=== PATIENT | male | born 1985 | race Caucasian/White ===

== ENCOUNTER 2017-11-29 13:18 | Inpatient (IN) | payer OTHER, SELFPAY ==
[2017-11-29] VITALS (10 sets, daily range): BP systolic 101–133; BP diastolic 59–95; PULSE 62–86; RESP 14–18; TEMP 36.4–37.1; O2SAT 96–99; BMI 25.7; BMI 26.9
--- NOTE | 2017-11-29 13:24 | CT_ITS ---
STUDY: CT BRAIN WITHOUT CONTRAST REASON FOR EXAM: Male, 32 years old. Double vision. Dizziness and nausea. Acute onset. RADIATION DOSAGE (If Supplied By Facility): CTDIvol = ( 60.81 ) mGy, DLP = ( 975.86 ) mGycm TECHNIQUE: Transaxial CT imaging of the brain was performed without administration of intravenous contrast material. Individualized dose optimization techniques were used for this CT. COMPARISON: None. FINDINGS: Normal soft tissue structures. Normal calvarium. Normal size ventricles and extra-axial spaces for the patient's age. Normal white matter tracts of the cerebral hemispheres. Normal basal ganglia and thalami. Normal brainstem. Normal cerebellum. There is no intracranial hemorrhage. There are no findings of an acute ischemic infarction. Normal visualized paranasal sinuses. CT/Brain/Head without Contrast IMPRESSION: Normal unenhanced CT scan of the brain. Electronically Signed: Denys Herrera MD at 14:12 EST Tel [phone], Service support ,
[2017-11-29] MEDS: Ondansetron ODT 4 MG Tablet PO (13:26)
[2017-11-29 16:03] LABS: Anion Gap 7 (5-15); BUN 17 mg/dL (7-18); BUN/Creat Ratio 20.6 RATIO (10-20); Calcium,Total 9.5 mg/dL (8.5-10.1); Chloride 104 mmol/L (98-107); Creatinine, Serum 0.83 mg/dL (0.70-1.30); EST Glomerular Filtration Rate 116 mL/min (>60); Est Glom Filt Rate - Afr Amer 140 mL/min (>60); Estimated Creatinine Clearance 108.97 ml/min; Glucose 99 mg/dL (70-110); Potassium 4.4 mmol/L (3.5-5.1); Sodium Level 138 mmol/L (136-145)
[2017-11-29 16:04] LABS: Absolute Lymphocyte Count 1.37 X10^3/ul (0.83-4.51); Absolute Neutrophil Count 9.9 X10^3/uL (2.0-7.7); Basophil# 0.01 X10^3/uL; Basophil% 0.1 % (0-1); Eosinophil# 0.08 X10^3/uL; Eosinophils% 0.7 % (0-5); Hematocrit 51.1 % (40-54); Hemoglobin 17.2 g/dl (13.0-16.5); Lymphocyte # 1.37 X10^3/ul (4.0); Lymphocyte % 11.1 % (19-41); Mean Corp Hgb Conc 33.7 g/gl (32-36); Mean Corpuscular Hgb 31.6 pg (27.0-32.0); Mean Corpuscular Volume 93.9 fL (80-94); Mean Platelet Vol. 10.1 fl (6.2-12.0); Monocyte# 0.88 X10^3/uL; Monocyte% 7.2 % (0-10); Neutrophil # 9.94 X10^3/uL (2.7-7.7); Neutrophil % 80.7 % (47-70); Platelet Count 266 K/mm3 (150-450); RBC Distribution Width CV 12.7 % (11.6-14.6); RBC Distribution Width SD 43.6 fl (35.1-43.9); Red Blood Count 5.44 M/mm3 (4.6-6.2); White Blood Count 12.3 K/mm3 (4.4-11.0)
[2017-11-29 16:08] LABS: POSITIVE COUNT NO; POSITIVE DIFFERENTIAL NO; POSITIVE MORPHOLOGY NO
[2017-11-29 16:12] LABS: Amphetamine Urine VISTA NEGATIVE (<1000 ng/mL); Barbiturate Urine VISTA NEGATIVE (< 200 ng/mL); Benzodiazepine Urine VISTA NEGATIVE (< 200 ng/mL); Cocaine Urine VISTA NEGATIVE (< 300 ng/mL); Ecstacy Urine VISTA NEGATIVE (< 500 ng/mL); Methadone Urine VISTA NEGATIVE (< 300 ng/mL); PCP Urine VISTA NEGATIVE (< 25 ng/mL); THC Urine VISTA NEGATIVE (< 50 ng/mL); Vista UDS pH Range 6
--- NOTE | 2017-11-29 16:34 | MRI_ITS ---
ADDENDUM REPORT: MR Brain WO/W Contrast INDICATION: LEFT MEDIAL RICTUS PALSYdizzy,double vision, eyes not moving together COMPARISON: None TECHNIQUE: Multiplanar multisequence MRI examination of the brain and with IV contrast. Dedicated T1 and T2-weighted sequences of the orbits without and with IV contrast. A total of 7 mL of gadoavist was given. FINDINGS: There is evidence of a punctate focus of restricted diffusion. The left lateral aspect of the rhomboid fossae, floor of the superior aspect of the fourth ventricle, just caudal to the left inferior colliculus. This is compatible with a punctate focus of infarction in the midbrain. No additional areas of infarction are seen. The ventricular system and cortical sulci are normal. Small simple cyst is seen adjacent to the frontal horn of the right lateral ventricle, congenital variation. Midline structures and craniocervical junction are otherwise unremarkable. There is no evidence of signal abnormality to suggest underlying chronic ischemic microvascular white matter changes. There is no evidence of parenchymal hemorrhage, mass effect, midline shift, or abnormal extra-axial collection. Orbital structures are normal and symmetric. Optic nerve sheath complexes are normal. Globes are normal and symmetric. Extraocular muscles are normal and symmetric. After contrast administration, there is no abnormal enhancement identified. Flow voids of the [place] vascularity are present. The paranasal sinuses and mastoid air cells are clear. IMPRESSION: Punctate focus of restricted diffusion/acute infarction in the rhomboid fossa, left lateral aspect of the floor of the fourth ventricle (midbrain). No evidence of any prior infarcts or underlying chronic ischemic microvascular white matter disease. Unremarkable appearance of the orbital contents. at 2022 Reported and signed by: Shu Peraza MD at 2041 Reported and signed by: Shu Peraza MD PREVIOUS REPORT: MR Brain WO/W Contrast INDICATION: LEFT MEDIAL RICTUS PALSYdizzy,double vision, eyes not moving together COMPARISON: None TECHNIQUE: Multiplanar multisequence MRI examination of the brain and with IV contrast. Dedicated T1 and T2-weighted sequences of the orbits without and with IV contrast. A total of 7 mL of gadoavist was given. FINDINGS: There is evidence of a punctate focus of restricted diffusion. The left lateral aspect of the rhomboid fossae, floor of the superior aspect of the fourth ventricle, just caudal to the left inferior colliculus. This is compatible with a punctate focus of infarction in the midbrain. No additional areas of infarction are seen. The ventricular system and cortical sulci are normal. Small simple cyst is seen adjacent to the frontal horn of the right lateral ventricle, congenital variation. Midline structures and craniocervical junction are otherwise unremarkable. There is no evidence of signal abnormality to suggest underlying chronic ischemic microvascular white matter changes. There is no evidence of parenchymal hemorrhage, mass effect, midline shift, or abnormal extra-axial collection. Orbital structures are normal and symmetric. Optic nerve sheath complexes are normal. Globes are normal and symmetric. Extraocular muscles are normal and symmetric. After contrast administration, there is no abnormal enhancement identified. Flow voids of the [place] vascularity are present. The paranasal sinuses and mastoid air cells are clear. IMPRESSION: Punctate focus of restricted diffusion/acute infarction in the rhomboid fossa, left lateral aspect of the floor of the fourth ventricle (midbrain). No evidence of any prior infarcts or underlying chronic ischemic microvascular white matter disease. Unremarkable appearance of the orbital contents. at 2023 Reported and signed by: Shu Peraza MD Electronically Signed: Shu Peraza MD at 19:40 EST Tel , Service support , MR Face Neck Orbit WO/W Contrast INDICATION: LEFT MEDIAL RICTUS PALSYdizzy,double vision, eyes not moving together COMPARISON: None TECHNIQUE: Multiplanar multisequence MRI examination of the brain and with IV contrast. Dedicated T1 and T2-weighted sequences of the orbits without and with IV contrast. A total of 7 mL of gadoavist was given. FINDINGS: There is evidence of a punctate focus of restricted diffusion. The left lateral aspect of the rhomboid fossae, floor of the superior aspect of the fourth ventricle, just caudal to the left inferior colliculus. This is compatible with a punctate focus of infarction in the midbrain. No additional areas of infarction are seen. The ventricular system and cortical sulci are normal. Small simple cyst is seen adjacent to the frontal horn of the right lateral ventricle, congenital variation. Midline structures and craniocervical junction are otherwise unremarkable. There is no evidence of signal abnormality to suggest underlying chronic ischemic microvascular white matter changes. There is no evidence of parenchymal hemorrhage, mass effect, midline shift, or abnormal extra-axial collection. Orbital structures are normal and symmetric. Optic nerve sheath complexes are normal. Globes are normal and symmetric. Extraocular muscles are normal and symmetric. After contrast administration, there is no abnormal enhancement identified. Flow voids of the [place] vascularity are present. The paranasal sinuses and mastoid air cells are clear. MRI/Brain W/WO Contrast IMPRESSION: Punctate focus of restricted diffusion/acute infarction in the rhomboid fossa, left lateral aspect of the floor of the fourth ventricle (midbrain). No evidence of any prior infarcts or underlying chronic ischemic microvascular white matter disease. Unremarkable appearance of the orbital contents. at 2023 Reported and signed by: Shu Peraza MD Electronically Signed: Shu Peraza MD at 19:21 EST Tel , Service support ,
--- NOTE | 2017-11-29 16:40 | ED.VISSUMM ---
- ER Visit Summary Date of Service: 11/29/17 Chief Complaint: Double vision History of Present Illness: The patient is a 32 M who states that he was awake around 930 and was seen normally. He laid down for a nap and he states that he was awoken from his nap by something. It may have been a headache or may be a bad dream. He states that when he looked at the television there was 2 of them. This double vision has persisted all day. He states he feels off balance while walking. He wears corrective lenses. When he covers one eye is double vision goes away. He does note that when he covers his right eye he cannot look medially with the left eye. Patient has a history of cocaine use but denies any recent use. Physical Examination: Afebrile vital signs are stable visual acuity 20/20 in both eyes with corrective lenses 20/20 right eye 20/25 left eye Gen: Well-nourished well-developed Head: Normocephalic atraumatic Eyes: Perrl pupils react consensually. Visual acuity noted and normal. There is a medial rectus palsy. ENT: TMs clear no rhinorrhea moist mucous membranes Neck: Supple no lymphadenopathy no JVD nontender CVS: Regular rate rhythm no murmurs normal S1-S2 Respiratory: No distress clear to auscultation bilaterally chest nontender Abdomen: Soft nontender nondistended normal bowel sounds no masses Back: Nontender Extremity: Nontender no edema Skin: Normal color no rash Neuro: alert orientated ?3 CN II-XII intact normal strength sensation reflexes gait cerebellar Psych: Normal affect normal mood Test Results: CT obtained through nursing triage was negative. Basic blood work and urine drugs abuse is negative. MRI was obtained. This was positive for an area of acute infarction in the midbrain Emergency Department Course and Treatment: Patient passed swallow study. Received aspirin. I originally spoke with Dr. Garcia for ophthalmology and later spoke with Dr. Horowitz and Dr. Caldwell. Our plan is admission. Impression: 1. Acute stroke 2. Intranuclear ophthalmoplegia This note was generated with [employer] software. It may contain incorrect words, spelling, and punctuation that were not noted in review of the chart prior to signing ED Disposition - Plan for ED Patient: Chief Complaint: Vision Prob
--- NOTE | 2017-11-29 20:46 | EKG12_ITS ---
Test Reason : Blood Pressure : / mmHG Vent. Rate : 057 BPM Atrial Rate : 057 BPM P-R Int : 156 ms QRS Dur : 086 ms QT Int : 386 ms P-R-T Axes : 037 011 022 degrees QTc Int : 375 ms Sinus bradycardia Otherwise normal ECG Confirmed by ARIES HUSSEIN ([id number]), medical editor SANTHOSH ROSAS ([id number]) on 12/04/2017 10:07:20 AM Referred By: STEPHEN Confirmed By:ARIES HUSSEIN
[2017-11-29] MEDS: Aspirin 325 MG Tablet PO (20:58)
[2017-11-29] MEDS: Acetaminophen 500 MG Tablet 1000 MG PO (20:58)
--- NOTE | 2017-11-29 21:24 | ED.RN ---
DR. JONES RETURNED PAGE
--- NOTE | 2017-11-29 21:50 | HP.PCM_ITS ---
Problem List (1) Tobacco use Status: Chronic (2) Polysubstance abuse Status: Chronic (3) Overweight (BMI 25.0-29.9) Status: Chronic (4) Acute CVA (cerebrovascular accident) Status: Acute History of Present Illness Date of Admission: 11/29/17 Chief Complaint: Double vision. The patient is a 32 y/o M w/ PMHx: Tobacco use, Polysubstance abuse who presents to the [facility] ED on 11/29/17 w/ history of awakening this AM at ~ 9:30 am without any issue, laying down again at ~ 10:00 am, awakening suddenly for unclear reason at ~ 10:45 am and when he looked at the TV in front of him there were two images present. He laid back down and thought it may go away but eventually upon fully awaking it would not. He noted the diplopia continued throughout the evening with associated nausea. He noted associated difficulty walking secondary to the double vision. He noted when he closes 1 eye, either, he is able to see normally. In the ED evaluation w/ improvement of vision to baseline w/ 1 eye closed, noted left eye unable to cross midline w/ nystagmus present, visual acuity with 1 eye closure 20/20 w/ eye glasses. ED discussed patient w/ [facility], Dr. Garcia who will follow outpatient upon discharge. In the ED work-up included T 98.7, HR 70, BP 125/81, RR 16, 99% on RA , CBC w/ WBC 12.3, Hgb 17.2, Plts 266 with L shift, coags pending, BMP unremarkable, UDS unremarkable, CT brain unremarkable, MRI Brain w/ punctate focus of restricted diffusion/acute infarction in the rhomboid fossa, left lateral aspect of the floor of the fourth ventricle with no evidence of any prior infarcts or underlying chronic ischemic microvascular white matter disease , unremarkable appearance of the orbital contents. In the ED patient administered Tylenol, aspirin 325 mg p.o. ?1, Silvia. Neurology, Dr. Horowitz consulted per ED and case reviewed, agreed with ASA continuation, will see in AM he noted. Discussed case with ED and requested prior to admission given age and atypical presentation, hypercoaguable panel be obtained prior to admission. Past Medical History Past Medical History (Chronic Problems): Chronic Problems Tobacco use (Chronic) Polysubstance abuse (Chronic) Overweight (BMI 25.0-29.9) (Chronic) Allergies No Known Allergies Allergy (Verified 11/29/17 13:21) Home Medications: Ambulatory Orders Medication Instructions Recorded NK [NK] 11/29/17 Surgical History: - - RLE surgery w/ hardware. Psychiatric History: No pertinent psych hx Lives: Alone Smoking Status: Current some day smoker Tobacco Use: Cigarettes Alcohol: Occasional - Notes 1-2 beers per day. Drugs: - - Clean x 1 year, prior noted cocaine most recently. - *Family History Maternal History Items: Heart Disease, Hypertension Paternal History Items: - - ? History of possible DVT, not confirmed. Review of Systems Constitutional: Reports: Fatigue. Denies: Chills, Fever, Weight Change Eyes: Reports: Double vision HEENT: Reports: Head Aches. Denies: Sinus Congestion, Sinus Drainage Cardiovascular: Denies: Chest Pain, Palpitations Respiratory: Denies: Cough, Shortness of breath at rest, Sputum production Gastrointestinal: Reports: Nausea. Denies: Abdominal Pain, Vomiting Genitourinary: Denies: Dysuria Musculoskeletal: Denies: Joint Pain, Joint Tenderness Skin: Denies: Rash, Wounds Neurological: Denies: Numbness, Tingling, Focal weakness Psychiatric: Denies: Anxiety, Depression, Homicidal Ideations, Suicidal Ideations Hematologic/ Lymphatic: Denies: Easy Bruising, Easy Bleeding VTE Information - Inpt Only VTE Present on Admission: No VTE Mechan Device Prophylaxis: SCD's VTE Pharm Prophylaxis ordered?: Yes Patient Problems: Active and Suspected Problems Acute CVA (cerebrovascular accident) (Acute) Subjective: Seated upright in the ED bed, NAD, notes no further headache and nausea improved after anti-emetic. Objective: Physical Examination: General: awake, alert, oriented x 3 and cooperative, seated upright in the ED bed in no apparent distress. Skin: normal color, turgor, no icterus, cyanosis. HEENT: AT/NC, EOM not intact, unable to pass midline BL with lateral vision w/ nystagmus present BL with lateral attempts, PERRLA, mildly dry MM, no carotid bruits or JVD noted. Lungs: CTA bilaterally, moderate effort, mild decrease BL bases, no rales, ronchi or wheezing. Heart: regular rate and rhythm; no gallop, rub audible. Abdomen: soft, NTTP, ND, normal BS, no HSM. Extremities: no cyanosis, clubbing, or edema. Neurological: patient awake, alert, oriented x 3; cognitive function intact; pupils equally reactive to light and accomodation; EOM not intact, unable to pass midline BL with lateral vision w/ nystagmus present BL with lateral attempts; cranial nerves aside eye deficit noted intact; moving all 4 extremities, no focal deficits, negative babinski BL, strength preserved. Psychiatric: affect appears normal, no acute evidence of depressive or anxiety feelings. - Physical Exam Vital Signs Temp Pulse Resp BP Pulse Ox 98.7 F 62 16 109/95 H 99 11/29/17 13:19 11/29/17 21:02 11/29/17 21:02 11/29/17 21:02 11/29/17 21:02 Oxygen Delivery Method Room Air Weight: 150 lb Body Mass Index (BMI) 25.7 Laboratory Tests Past 24 Hrs 11/29/17 11/29/17 11/29/17 14:20 14:20 15:50 WBC 12.3 H RBC 5.44 Hgb 17.2 H Hct 51.1 MCV 93.9 MCH 31.6 MCHC 33.7 RDW 12.7 RDW Differential 43.6 Plt Count 266 MPV 10.1 Immature Gran % (Auto) 0.200 Neut % (Auto) 80.7 H Lymph % (Auto) 11.1 L [place] % (Auto) 7.2 Eos % (Auto) 0.7 Baso % (Auto) 0.1 Absolute Neuts (auto) 9.9 H Absolute Lymphs (auto) 1.37 Total Counted Not Reportable PT INR APTT Sodium 138 Potassium 4.4 Chloride 104 Carbon Dioxide 27.0 Anion Gap 7 BUN 17 Creatinine 0.83 Estim Creat Clear Calc 108.97 Est GFR (MDRD) Af Amer 140 Est GFR (MDRD) Non-Af 116 BUN/Creatinine Ratio 20.6 H Glucose 99 Calcium 9.5 Urine Opiates Screen NEGATIVE Urine Methadone Screen NEGATIVE Ur Barbiturates Screen NEGATIVE Ur Phencyclidine Scrn NEGATIVE Ur Amphetamines Screen NEGATIVE U Methamphetamin-MDMA NEGATIVE U Benzodiazepines Scrn NEGATIVE Urine Cocaine Screen NEGATIVE U Cannabinoids Screen NEGATIVE Ur Drug Screen Comment 11/29/17 21:10 WBC RBC Hgb Hct MCV MCH MCHC RDW RDW Differential Plt Count MPV Immature Gran % (Auto) Neut % (Auto) Lymph % (Auto) [place] % (Auto) Eos % (Auto) Baso % (Auto) Absolute Neuts (auto) Absolute Lymphs (auto) Total Counted PT Pending INR Pending APTT Pending Sodium Potassium Chloride Carbon Dioxide Anion Gap BUN Creatinine Estim Creat Clear Calc Est GFR (MDRD) Af Amer Est GFR (MDRD) Non-Af BUN/Creatinine Ratio Glucose Calcium Urine Opiates Screen Urine Methadone Screen Ur Barbiturates Screen Ur Phencyclidine Scrn Ur Amphetamines Screen U Methamphetamin-MDMA U Benzodiazepines Scrn Urine Cocaine Screen U Cannabinoids Screen Ur Drug Screen Comment Assessment/Plan Active and Suspected Problems Acute CVA (cerebrovascular accident) (Acute) The patient is a 32 y/o M w/ PMHx: Tobacco use, Polysubstance abuse who presents to the [facility] ED on 11/29/17 w/ history of awakening this AM at ~ 9:30 am without any issue, laying down again at ~ 10:00 am, awakening suddenly for unclear reason at ~ 10:45 am and when he looked at the TV in front of him there were two images present. (1) Diplopia secondary to acute infarction in the rhomboid fossa, left lateral aspect of the floor of the fourth ventricle: In the ED work-up included T 98.7, HR 70, BP 125/81, RR 16, 99% on RA, CBC w/ WBC 12.3, Hgb 17.2, Plts 266 with L shift, coags pending, BMP unremarkable, UDS unremarkable, CT brain unremarkable , MRI Brain w/ punctate focus of restricted diffusion/acute infarction in the rhomboid fossa, left lateral aspect of the floor of the fourth ventricle with no evidence of any prior infarcts or underlying chronic ischemic microvascular white matter disease, unremarkable appearance of the orbital contents. Will admit to PCU, will obtain CTA Head and Neck given not obtained in the ED, already obtained MRI Brain w/ acute CVA as noted, obtain ECHO, PT/OT/Speech/ Nutrition evaluation per protocol. Will continue ED initiated consult with Neurology. Will allow permissive HTN although BP normal in the ED, maintain on asa, add statin w/ AM FLP, fall precautions. Mag, TSH pending. Fall precautions. Hypercoag panel requested per ED prior to admission, pending these results may be appropriate for anticoagulation. Plan follow-up at [facility] w/ Dr. Garcia upon discharge. (2) Tobacco Abuse: Encouraged cessation, inpatient consultation per RT, NR if desired. (3) Polysubstance abuse: Notes clean x> 1 year, last was cocaine, last usage 1 year prior, UDS negative, denies any fire sprinkler designer drugs. (4) DVT Prophylaxis: SCDs, lovenox. Code Visit Inpatient E&M: 50935 Init Hosp L3
[2017-11-29 21:51] LABS: Partial Thromboplast Time 29.5 Seconds (24.1-36.2)
[2017-11-29] MEDS: Ondansetron 4 MG/2 ML Vial IV (22:46)
--- NOTE | 2017-11-29 23:06 | ECHOD_ITS ---
Reason For Study: TIA/CVA Procedure This was a 2D Doppler, Color Flow transthoracic echocardiogram. Exam performed portable in patient room. Left Ventricle Normal size and thickness. The estimated ejection fraction is 65 %. Normal diastology for age. No regional wall motion abnormalities noted. Right Ventricle Normal size and thickness. A moderator band is seen in the right ventricle. Normal systolic function. Atria Normal left atrium. Normal right atrium. Normal atrial septum. Bubble contrast study negative for right to left interatrial shunt. Mitral Valve The mitral valve is structurally normal. No prolapse or stenosis seen. Tricuspid Valve Normal tricuspid valve. Unable to estimate RV systolic pressure/pulmonary artery pressure due to technically difficult study. Aortic Valve Trisinus/trileaflet aortic valve. Normal aortic valve. Pulmonic Valve Normal pulmonic valve. Great Vessels Normal aortic root. Normal arch. Normal inferior vena cava. Inferior vena cava collapse with sniff. Pericardium/Pleural No pericardial effusion. Medication Performed a rapid injection of agitated mix of 9 cc saline and 1cc air to assess for atrial septal defect. MMode/2D Measurements & Calculations LVIDd: 4.3 cm IVSd: 0.87 cm Ao root diam: 2.9 cm LVIDs: 2.6 cm LVPWd: 0.83 cm LA dimension: 3.1 cm RVDd: 3.0 cm FS: 38.3 % LAV(MOD-bp): 27.3 ml LA A4 area: 13.0 cm2 RA A4 area: 14.3 cm2 LAV(MOD-bp) Indexed: 15.7 ml/m2 LAV(MOD-sp2): 25.3 ml LAV(MOD-sp4): 23.2 ml Doppler Measurements & Calculations MV E max man: 93.6 cm/sec Lat Peak E' Man: 15.0 cm/sec Med Peak E' Man: 13.9 cm/sec MV A max man: 61.1 cm/sec E/E' lat: 6.3 E/E' med: 6.7 MV E/A: 1.5 Ao V2 max: 133.6 cm/sec LV V1 max: 121.7 cm/sec PA V2 max: 104.0 cm/sec Ao max P.1 mmHg LV V1 max P.9 mmHg Interpretation Summary The estimated ejection fraction is 65 %. Normal diastology for age. Unable to estimate RV systolic pressure/pulmonary artery pressure due to technically difficult study. Bubble contrast study negative for right to left interatrial shunt. There is no comparison study available. Ordering Physician: Latanya Caldwell Referring Physician: Sheron PCP Performed By: Yancy Rivas RDCS
--- NOTE | 2017-11-29 23:06 | CT_ITS ---
CTA Head and Neck WO/W Contrast INDICATION: DOUBLE VISION,NAUSEA AND UNABLE TO STAND,ELEVATED WBC,PT HAD C- BRAIN AND MRI ALSOHX:VERTIGO COMPARISON: None TECHNIQUE: High-resolution axial CT imaging of the head and neck during intravenous contrast administration, CTA protocol. Coronal, sagittal, MIP reformatted images are obtained. Radiation dose of dilatation technique and NASCET criteria are applied. 100 mL of Isovue-370 were given intravenously. FINDINGS: CTA neck: Aortic arch is unremarkable, there is normal origin of the great vessels from the aortic arch (bovine anatomy incidentally noted). There is unremarkable appearance of the common carotid arteries. The bifurcations are normal. There is no evidence of arteriosclerotic disease. The internal carotid arteries are normal and symmetric. Posterior circulation demonstrates a dominant left vertebral artery and a small caliber right vertebral artery. There is normal confluence to the basilar artery. CTA head: There is symmetric appearance of the intracranial portions of the internal carotid arteries with symmetric supply to the anterior and middle cerebral arteries and their branch vessels. Posterior circulation demonstrates normal appearance of the basilar artery, basilar artery gives rise to both posterior cerebral arteries. The dural venous sinuses are patent. CT/CTA Head W/WO Contrast IMPRESSION: Negative CT angiogram of the head and neck. at 5376 Reported and signed by: Shu Peraza MD Electronically Signed: Shu Peraza MD at 22:57 EST Tel , Service support ,
--- NOTE | 2017-11-29 23:06 | CT_ITS ---
CTA Head and Neck WO/W Contrast INDICATION: DOUBLE VISION,NAUSEA AND UNABLE TO STAND,ELEVATED WBC,PT HAD C- BRAIN AND MRI ALSOHX:VERTIGO COMPARISON: None TECHNIQUE: High-resolution axial CT imaging of the head and neck during intravenous contrast administration, CTA protocol. Coronal, sagittal, MIP reformatted images are obtained. Radiation dose of dilatation technique and NASCET criteria are applied. 100 mL of Isovue-370 were given intravenously. FINDINGS: CTA neck: Aortic arch is unremarkable, there is normal origin of the great vessels from the aortic arch (bovine anatomy incidentally noted). There is unremarkable appearance of the common carotid arteries. The bifurcations are normal. There is no evidence of arteriosclerotic disease. The internal carotid arteries are normal and symmetric. Posterior circulation demonstrates a dominant left vertebral artery and a small caliber right vertebral artery. There is normal confluence to the basilar artery. CTA head: There is symmetric appearance of the intracranial portions of the internal carotid arteries with symmetric supply to the anterior and middle cerebral arteries and their branch vessels. Posterior circulation demonstrates normal appearance of the basilar artery, basilar artery gives rise to both posterior cerebral arteries. The dural venous sinuses are patent. CT/CTA Neck W/WO Contrast IMPRESSION: Negative CT angiogram of the head and neck. at 5876 Reported and signed by: Shu Peraza MD Electronically Signed: Shu Peraza MD at 22:56 EST Tel , Service support ,
[2017-11-29 23:35] LABS: Magnesium 1.9 mg/dL (1.6-2.6); Thyroid Stim Hormone (TSH) 1.09 uIU/mL (0.358-3.74)
[2017-11-30] VITALS (13 sets, daily range): BP systolic 116–138; BP diastolic 67–83; PULSE 53–83; RESP 16–18; TEMP 36.6–37.2; O2SAT 96–99; BMI 26.9
[2017-11-30] MEDS: 0.9% Normal Saline 1,000 ML 100 ML IV ×3 (00:17→21:27)
[2017-11-30] MEDS: 0.9% NaCl Peripheral Flush Adult/Peds IV (00:17)
[2017-11-30] MEDS: Enoxaparin 40 MG/0.4 ML Syringe SC ×2 (00:19→10:08)
[2017-11-30 07:50] LABS: Hematocrit 45.4 % (40-54); Hemoglobin 15.3 g/dl (13.0-16.5); Mean Corp Hgb Conc 33.7 g/gl (32-36); Mean Corpuscular Hgb 31.5 pg (27.0-32.0); Mean Corpuscular Volume 93.4 fL (80-94); Platelet Count 256 K/mm3 (150-450); RBC Distribution Width CV 12.7 % (11.6-14.6); Red Blood Count 4.86 M/mm3 (4.6-6.2); White Blood Count 7.1 K/mm3 (4.4-11.0)
[2017-11-30 07:52] LABS: Scan Indicated on CBC? Y/N NO
[2017-11-30 08:26] LABS: Anion Gap 8 (5-15); BUN 15 mg/dL (7-18); BUN/Creat Ratio 18.4 RATIO (10-20); Calcium,Total 8.7 mg/dL (8.5-10.1); Chloride 105 mmol/L (98-107); Cholesterol 217 mg/dL (200); Creatinine, Serum 0.82 mg/dL (0.70-1.30); EST Glomerular Filtration Rate 117 mL/min (>60); Est Glom Filt Rate - Afr Amer 142 mL/min (>60); Glucose 100 mg/dL (70-110); High Density Lipoprotein 34 mg/dL; Potassium 4.2 mmol/L (3.5-5.1); Sodium Level 138 mmol/L (136-145); Triglycerides 360 mg/dL; Very Low Density Lipoprotein 72 mg/dL (5-40)
[2017-11-30] MEDS: Famotidine 20 MG Tablet PO ×2 (10:02→21:27)
[2017-11-30] MEDS: Aspirin 81 MG TAB.CHEW PO (10:02)
--- NOTE | 2017-11-30 10:31 | PCM.CONS.GEN ---
Reason for Consult Date of Consultation: 11/30/17 Reason for Consultation: cva History of Present Illness: The patient is a 32 year old M with history of cocaine use, never iv drugs and last use several months ago. history as below, at 10 am noted double vision, which has persisted but no other neurologic symptoms. works as data management specialist. + tobacco. came to ed last night, mri showed acute small left tectum infarct. reports today vision improved. no recent illness. reports history of vertigo several years ago, onset prior to bedtime, awoke in the am with it, described as spinning, lasted 3-4 days. no medical evaluation. right handed. questionable history of dvt in father, no family history of clots or multiple miscarriages otherwise. per h&p:The patient is a 32 y/o M w/ PMHx: Tobacco use, Polysubstance abuse who presents to the [facility] ED on 11/29/17 w/ history of awakening this AM at ~ 9:30 am without any issue, laying down again at ~ 10:00 am, awakening suddenly for unclear reason at ~ 10:45 am and when he looked at the TV in front of him there were two images present. He laid back down and thought it may go away but eventually upon fully awaking it would not. He noted the diplopia continued throughout the evening with associated nausea. He noted associated difficulty walking secondary to the double vision. He noted when he closes 1 eye, either, he is able to see normally. In the ED evaluation w/ improvement of vision to baseline w/ 1 eye closed, noted left eye unable to cross midline w/ nystagmus present, visual acuity with 1 eye closure 20/20 w/ eye glasses. ED discussed patient w/ [facility], Dr. Garcia who will follow outpatient upon discharge. In the ED work-up included T 98.7, HR 70, BP 125/81, RR 16, 99% on RA, CBC w/ WBC 12.3, Hgb 17.2, Plts 266 with L shift, coags pending, BMP unremarkable, UDS unremarkable, CT brain unremarkable, MRI Brain w/ punctate focus of restricted diffusion/acute infarction in the rhomboid fossa, left lateral aspect of the floor of the fourth ventricle with no evidence of any prior infarcts or underlying chronic ischemic microvascular white matter disease, unremarkable appearance of the orbital contents. In the ED patient administered Tylenol, aspirin 325 mg p.o. ?1, Silvia. Neurology, Dr. Horowitz consulted per ED and case reviewed, agreed with ASA continuation, will see in AM he noted. Discussed case with ED and requested prior to admission given age and atypical presentation, hypercoaguable panel be obtained prior to admission. Past Medical History Past Medical History (Chronic Problems): Chronic Problems Tobacco use (Chronic) Polysubstance abuse (Chronic) Overweight (BMI 25.0-29.9) (Chronic) Allergies No Known Allergies Allergy (Verified 11/29/17 13:21) Home Medications: Ambulatory Orders Medication Instructions Recorded NK [NK] 11/29/17 Surgical History: - - RLE surgery w/ hardware. right tibia fx '08 Psychiatric History: No pertinent psych hx Lives: Alone Smoking Status: Current every day smoker Tobacco Use: Cigarettes Alcohol: Occasional - Notes 1-2 beers per day. Drugs: - - Clean x 1 year, prior noted cocaine most recently. - *Family History Maternal History Items: Heart Disease - afib Paternal History Items: - - ? History of possible DVT, not confirmed. Review of Systems Constitutional: Denies: Chills, Fever, Weight Change HEENT: Denies: Head Aches, Sinus Congestion, Sinus Drainage Cardiovascular: Denies: Chest Pain, Palpitations Respiratory: Denies: Cough, Shortness of breath at rest, Sputum production Gastrointestinal: Denies: Abdominal Pain, Nausea, Vomiting Genitourinary: Denies: Dysuria Musculoskeletal: Denies: Joint Pain, Joint Tenderness Skin: Denies: Rash, Wounds Neurological: Reports: Double vision. Denies: Focal weakness, Numbness, Tingling Psychiatric: Denies: Anxiety, Depression, Homicidal Ideations, Suicidal Ideations Hematologic/ Lymphatic: Denies: Easy Bruising, Easy Bleeding Patient Problems: Active and Suspected Problems Acute CVA (cerebrovascular accident) (Acute) - Physical Exam General: Alert, Oriented x3, Cooperative HEENT: Atraumatic, PERRLA, EOMI, Normocephalic Neck: Supple, No JVD, Negative Carotid Bruits Lungs: Clear to auscultation, Normal air movement Cardiovascular: Regular rate, No murmurs Abdomen: Bowel Sounds Present, Soft, Non Tender Extremities: No edema, Capillary Refill Less than 3 Seconds Skin: No rashes, No breakdown Musculoskeletal: No Tenderness to Palpation of Joints or Extremities Neurological: - Psych/Mental Status: Normal Affect, Appropriate Vital Signs Temp Pulse Resp BP Pulse Ox 36.6 C 54 L 18 124/70 H 97 11/30/17 07:30 11/30/17 07:49 11/30/17 07:30 11/30/17 07:30 11/30/17 07:30 Oxygen Delivery Method Room Air Weight: 71.2 kg Body Mass Index (BMI) 26.9 Intake and Output for Last 24 Hours 11/28/17 11/29/17 11/30/17 23:59 23:59 23:59 Intake Total 1209 / 1209 Balance 1209 / 1209 Laboratory Tests Past 24 Hrs 11/29/17 11/29/17 11/29/17 22:40 22:40 22:40 WBC RBC Hgb Hct MCV MCH MCHC RDW RDW Differential Plt Count MPV Dil Grant Viper Venom Pending Protein C Antigen Pending Functional Protein C Pending Prot C Funct Activity Pending Antithrombin III Ag Pending Func Antithrombin III Pending Factor V Leiden Mutat Pending Sodium Potassium Chloride Carbon Dioxide Anion Gap BUN Creatinine Estim Creat Clear Calc Est GFR (MDRD) Af Amer Est GFR (MDRD) Non-Af BUN/Creatinine Ratio Glucose Calcium Triglycerides Cholesterol LDL Cholesterol VLDL Cholesterol HDL Cholesterol Beta-2-GPI IgG Ab Pending Beta-2-GPI IgA Ab Pending Beta-2-GPI IgM Ab Pending Anti-Cardiolipin IgG Ab Pending Anti-Cardiolipin IgM Ab Pending Factor II DNA Analysis Pending 11/30/17 11/30/17 07:30 07:30 WBC 7.1 RBC 4.86 Hgb 15.3 Hct 45.4 MCV 93.4 MCH 31.5 MCHC 33.7 RDW 12.7 RDW Differential 43.0 Plt Count 256 MPV 10.0 Dil Grant Viper Venom Protein C Antigen Functional Protein C Prot C Funct Activity Antithrombin III Ag Func Antithrombin III Factor V Leiden Mutat Sodium 138 Potassium 4.2 Chloride 105 Carbon Dioxide 25.0 Anion Gap 8 BUN 15 Creatinine 0.82 Estim Creat Clear Calc 110.30 Est GFR (MDRD) Af Amer 142 Est GFR (MDRD) Non-Af 117 BUN/Creatinine Ratio 18.4 Glucose 100 Calcium 8.7 Triglycerides 360 H Cholesterol 217 H LDL Cholesterol 111 VLDL Cholesterol 72 H HDL Cholesterol 34 L Beta-2-GPI IgG Ab Beta-2-GPI IgA Ab Beta-2-GPI IgM Ab Anti-Cardiolipin IgG Ab Anti-Cardiolipin IgM Ab Factor II DNA Analysis mri reviewed, acute left tectal infarct cta nl Assessment/Plan Active and Suspected Problems Acute CVA (cerebrovascular accident) (Acute) acute infarct left tectum, stroke risk factors include tobacco use and high cholesterol. KEITH is very typical for ms but no other findings on mri or exam echo tele agree with asa/statin pt/ot/sp hypercoag labs pending eye patch will need outpt lp if hypercoag labs and above unrevealing
--- NOTE | 2017-11-30 11:10 | CASEMGMT ---
This RN CM to bedside to complete CM assessment and physical therapy is at bedside. Will attempt again later. SStjusto RN CM
[2017-11-30 11:40] LABS: Erythrocyte Sedimentation Rate 5 mm/hr (0-15)
--- NOTE | 2017-11-30 14:36 | CASEMGMT ---
Face to Face with patient for initial transition planning/care coordination assessment. KRYSTEN VALENCIA introduced self and role at [facility], pt voices understanding and consents to assessment at this time. Pt sitting up in bed in no distress at this time. Pt A/O x4 at this time and answers all questions appropriately at this time. Care providers, pharmacy, and demographics verified. See attached link. Pt voices no further concerns/needs at this time. Advised pt to ask for CM if any further questions/concerns/needs arise, voices understanding. PLAN: [place] KRYSTEN VALENCIA
--- NOTE | 2017-11-30 18:32 | PCM.PN.HOSP ---
Patient Problems: Active and Suspected Problems Acute CVA (cerebrovascular accident) (Acute) Subjective: Seen and examined. No new complaints. Appreciate neurology consult. Vitals are stable Objective: Physical Exam General: Alert, Oriented x3, Cooperative HEENT: Atraumatic, PERRLA, EOMI, Normocephalic Neck: Supple, No JVD, Negative Carotid Bruits Lungs: Clear to auscultation, Normal air movement Cardiovascular: Regular rate, No murmurs Abdomen: Bowel Sounds Present, Soft, Non Tender Extremities: No edema, Capillary Refill Less than 3 Seconds Skin: No rashes, No breakdown Musculoskeletal: No Tenderness to Palpation of Joints or Extremities Neurological: - Psych/Mental Status: Normal Affect, Appropriate Vitals/I&O's: Vital Signs Temp Pulse Resp BP Pulse Ox 98.6 F 80 18 134/83 H 97 11/30/17 17:00 11/30/17 17:00 11/30/17 17:00 11/30/17 17:00 11/30/17 17:00 Oxygen Delivery Method Room Air Weight: 71.2 kg Body Mass Index (BMI) 26.9 Intake and Output for Last 24 Hours 11/28/17 11/29/17 11/30/17 23:59 23:59 23:59 Intake Total 2681 / 2681 Balance 2681 / 2681 Laboratory Results 11/29/17 22:40: Protein C Antigen Pending, Functional Protein C Pending, Prot C Funct Activity Pending, Antithrombin III Ag Pending, Func Antithrombin III Pending, Factor II DNA Analysis Pending 11/29/17 22:40: Factor V Leiden Mutat Pending, Beta-2-GPI IgG Ab Pending, Beta-2-GPI IgA Ab Pending, Beta-2-GPI IgM Ab Pending, Anti-Cardiolipin IgG Ab Pending, Anti-Cardiolipin IgM Ab Pending 11/29/17 22:40: Dil Grant Viper Venom Pending 11/30/17 07:30: WBC 7.1, RBC 4.86, Hgb 15.3, Hct 45.4, MCV 93.4, MCH 31.5, MCHC 33.7, RDW 12.7, RDW Differential 43.0, Plt Count 256, MPV 10.0 11/30/17 07:30: Sodium 138, Potassium 4.2, Chloride 105, Carbon Dioxide 25.0, Anion Gap 8, BUN 15, Creatinine 0.82, Estim Creat Clear Calc 110.30, Est GFR (MDRD) Af Amer 142, Est GFR (MDRD) Non-Af 117, BUN/Creatinine Ratio 18.4, Glucose 100, Calcium 8.7, Triglycerides 360 H, Cholesterol 217 H, LDL Cholesterol 111, VLDL Cholesterol 72 H, HDL Cholesterol 34 L 11/30/17 07:38: ESR 5 Current Medications Acetaminophen (Tylenol) 650 mg PO Q4H PRN PRN PRN Reason: Headache/Temp>99F Acetaminophen (Tylenol) 650 mg RECTAL Q4H PRN PRN PRN Reason: Headache/Temp>99F Acetaminophen (Tylenol Liquid) 650 mg NG Q4H PRN PRN PRN Reason: Headache/Temp>99F Al Hydroxide/Mg Hydroxide (Mylanta Ii) 30 ml PO Q6H PRN PRN PRN Reason: Gastric burning Aspirin (Aspirin, Baby) 81 mg PO DAILY@0800 [facility] Last Admin: 11/30/17 10:02 Dose: 81 mg Atorvastatin Calcium (Lipitor) 80 mg PO QHS [facility] Enoxaparin Sodium (Lovenox) 40 mg SC DAILY@1000 [facility] Last Admin: 11/30/17 10:08 Dose: 40 mg Famotidine (Pepcid) 20 mg PO BID [facility] Last Admin: 11/30/17 10:02 Dose: 20 mg Sodium Chloride () 1,000 mls @ 100 mls/hr IV .Q10H [facility] Last Admin: 11/30/17 11:05 Dose: 100 mls/hr Sodium Chloride () 250 mls @ 15 mls/hr IV .[id number] PRN PRN Reason: SALINE FLUSH Magnesium Hydroxide (Milk Of Magnesia) 30 ml PO DAILY PRN PRN Reason: Constipation Ondansetron HCl (Zofran) 4 mg IV Q8H PRN PRN PRN Reason: NAUSEA Promethazine HCl (Phenergan (Ll)) 12.5 mg IV Q6H PRN PRN PRN Reason: NAUSEA/VOMITING Sodium Chloride () 5 - 30 ml IV UD PRN PRN Reason: SALINE FLUSH Last Admin: 11/30/17 00:17 Dose: 10 ml Assessment/Plan Active and Suspected Problems Acute CVA (cerebrovascular accident) (Acute) 32 y/o M with PMHxof Tobacco use, Polysubstance abuse admitted on 11/29/17 with diplopia 1. Diplopia secondary to acute infarction in the rhomboid fossa, left lateral floor of 4th ventricle, left tectal region, on aspirin, statin. ECHO is normal, hypercoagulable work-up in progress, pt/ot/speech therapy evaluations. 2. Tobacco Abuse, encouraged to quit 3. Polysubstance abuse, urine tox negative, advised to quit 4. DVT Prophylaxis: SCDs, lovenox.
[2017-11-30] MEDS: Atorvastatin Calcium 80 MG Tablet PO (21:27)
[2017-12-01] VITALS (9 sets, daily range): BP systolic 114–128; BP diastolic 68–85; PULSE 56–92; RESP 16–18; TEMP 36.4–37.1; O2SAT 95–98; BMI 26.9
[2017-12-01] MEDS: 0.9% Normal Saline 1,000 ML 100 ML IV (07:45)
[2017-12-01] MEDS: Aspirin 81 MG TAB.CHEW PO (08:02)
[2017-12-01] MEDS: Enoxaparin 40 MG/0.4 ML Syringe SC (08:02)
--- NOTE | 2017-12-01 14:36 | PCM.PN.HOSP ---
Patient Problems: Active and Suspected Problems Acute CVA (cerebrovascular accident) (Acute) Subjective: Patient and examined. Still complains of diplopia. Will his eye patch with some degree of comfort. Speech therapy has signed off him. Hypercoagulable panel pending Vitals/I&O's: Vital Signs Temp Pulse Resp BP Pulse Ox 98.7 F 92 18 116/72 98 12/01/17 12:00 12/01/17 12:00 12/01/17 12:00 12/01/17 12:00 12/01/17 12:00 Oxygen Delivery Method Room Air Weight: 71.2 kg Body Mass Index (BMI) 26.9 Intake and Output for Last 24 Hours 11/29/17 11/30/17 12/01/17 23:59 23:59 23:59 Intake Total 3184 / 3184 842 / 842 Balance 3184 / 3184 842 / 842 General: Alert, Oriented x3, Cooperative HEENT: Atraumatic, PERRLA, EOMI, Normocephalic Neck: Supple, No JVD, Negative Carotid Bruits Lungs: Clear to auscultation, Normal air movement Cardiovascular: Regular rate, Regular Rhythm, Normal S1, Normal S2, No murmurs Abdomen: Bowel Sounds Present, Soft, Non Tender, Non-Distended, No Hepato-splenomegaly Extremities: No edema Skin: No rashes Musculoskeletal: No Tenderness to Palpation of Joints or Extremities Lymphatic: No Cervical, Supraclavicular, or Inguinal Adenopathy Neurological: Cranial nerves II-XII grossly intact, Neuro grossly intact - diplopia present Psych/Mental Status: Normal Affect, Appropriate Current Medications Acetaminophen (Tylenol) 650 mg PO Q4H PRN PRN PRN Reason: Headache/Temp>99F Acetaminophen (Tylenol) 650 mg RECTAL Q4H PRN PRN PRN Reason: Headache/Temp>99F Acetaminophen (Tylenol Liquid) 650 mg NG Q4H PRN PRN PRN Reason: Headache/Temp>99F Al Hydroxide/Mg Hydroxide (Mylanta Ii) 30 ml PO Q6H PRN PRN PRN Reason: Gastric burning Aspirin (Aspirin, Baby) 81 mg PO DAILY@0800 [facility] Last Admin: 12/01/17 08:02 Dose: 81 mg Atorvastatin Calcium (Lipitor) 80 mg PO QHS [facility] Last Admin: 11/30/17 21:27 Dose: 80 mg Enoxaparin Sodium (Lovenox) 40 mg SC DAILY@1000 [facility] Last Admin: 12/01/17 08:02 Dose: 40 mg Famotidine (Pepcid) 20 mg PO BID [facility] Last Admin: 12/01/17 08:08 Dose: Not Given Sodium Chloride () 1,000 mls @ 100 mls/hr IV .Q10H [facility] Last Admin: 12/01/17 07:45 Dose: 100 mls/hr Sodium Chloride () 250 mls @ 15 mls/hr IV .[id number] PRN PRN Reason: SALINE FLUSH Magnesium Hydroxide (Milk Of Magnesia) 30 ml PO DAILY PRN PRN Reason: Constipation Ondansetron HCl (Zofran) 4 mg IV Q8H PRN PRN PRN Reason: NAUSEA Promethazine HCl (Phenergan (Ll)) 12.5 mg IV Q6H PRN PRN PRN Reason: NAUSEA/VOMITING Sodium Chloride () 5 - 30 ml IV UD PRN PRN Reason: SALINE FLUSH Last Admin: 11/30/17 00:17 Dose: 10 ml Assessment/Plan Active and Suspected Problems Acute CVA (cerebrovascular accident) (Acute) 32 y/o M with PMHxof Tobacco use, Polysubstance abuse admitted on 11/29/17 with diplopia 1. Diplopia secondary to acute infarction in the rhomboid fossa, left lateral floor of 4th ventricle, left tectal region, on aspirin, statin. ECHO is normal, hypercoagulable work-up in progress, continue with PT/OT evaluations 2. Tobacco Abuse, encouraged to quit 3. Polysubstance abuse, urine tox negative, advised to quit 4. DVT Prophylaxis: SCDs, lovenox. 5. Disposition: Per neurology recommendations Code Visit Inpatient E&M: 83936 Subs Hosp L2
--- NOTE | 2017-12-01 14:42 | PN_ITS ---
Patient Problems: Active and Suspected Problems Acute CVA (cerebrovascular accident) (Acute) Subjective: Patient and examined. Still complains of diplopia. Will his eye patch with some degree of comfort. Speech therapy has signed off him. Hypercoagulable panel pending Vitals/I&O's: Vital Signs Temp Pulse Resp BP Pulse Ox 98.7 F 92 18 116/72 98 12/01/17 12:00 12/01/17 12:00 12/01/17 12:00 12/01/17 12:00 12/01/17 12:00 Oxygen Delivery Method Room Air Weight: 71.2 kg Body Mass Index (BMI) 26.9 Intake and Output for Last 24 Hours 11/29/17 11/30/17 12/01/17 23:59 23:59 23:59 Intake Total 3184 / 3184 842 / 842 Balance 3184 / 3184 842 / 842 General: Alert, Oriented x3, Cooperative HEENT: Atraumatic, PERRLA, EOMI, Normocephalic Neck: Supple, No JVD, Negative Carotid Bruits Lungs: Clear to auscultation, Normal air movement Cardiovascular: Regular rate, Regular Rhythm, Normal S1, Normal S2, No murmurs Abdomen: Bowel Sounds Present, Soft, Non Tender, Non-Distended, No Hepato- splenomegaly Extremities: No edema Skin: No rashes Musculoskeletal: No Tenderness to Palpation of Joints or Extremities Lymphatic: No Cervical, Supraclavicular, or Inguinal Adenopathy Neurological: Cranial nerves II-XII grossly intact, Neuro grossly intact - diplopia present Psych/Mental Status: Normal Affect, Appropriate Current Medications Acetaminophen (Tylenol) 650 mg PO Q4H PRN PRN PRN Reason: Headache/Temp>99F Acetaminophen (Tylenol) 650 mg RECTAL Q4H PRN PRN PRN Reason: Headache/Temp>99F Acetaminophen (Tylenol Liquid) 650 mg NG Q4H PRN PRN PRN Reason: Headache/Temp>99F Al Hydroxide/Mg Hydroxide (Mylanta Ii) 30 ml PO Q6H PRN PRN PRN Reason: Gastric burning Aspirin (Aspirin, Baby) 81 mg PO DAILY@0800 [facility] Last Admin: 12/01/17 08:02 Dose: 81 mg Atorvastatin Calcium (Lipitor) 80 mg PO QHS [facility] Last Admin: 11/30/17 21:27 Dose: 80 mg Enoxaparin Sodium (Lovenox) 40 mg SC DAILY@1000 [facility] Last Admin: 12/01/17 08:02 Dose: 40 mg Famotidine (Pepcid) 20 mg PO BID [facility] Last Admin: 12/01/17 08:08 Dose: Not Given Sodium Chloride () 1,000 mls @ 100 mls/hr IV .Q10H [facility] Last Admin: 12/01/17 07:45 Dose: 100 mls/hr Sodium Chloride () 250 mls @ 15 mls/hr IV .[id number] PRN PRN Reason: SALINE FLUSH Magnesium Hydroxide (Milk Of Magnesia) 30 ml PO DAILY PRN PRN Reason: Constipation Ondansetron HCl (Zofran) 4 mg IV Q8H PRN PRN PRN Reason: NAUSEA Promethazine HCl (Phenergan (Ll)) 12.5 mg IV Q6H PRN PRN PRN Reason: NAUSEA/VOMITING Sodium Chloride () 5 - 30 ml IV UD PRN PRN Reason: SALINE FLUSH Last Admin: 11/30/17 00:17 Dose: 10 ml Assessment/Plan Active and Suspected Problems Acute CVA (cerebrovascular accident) (Acute) 32 y/o M with PMHxof Tobacco use, Polysubstance abuse admitted on 11/29/17 with diplopia 1. Diplopia secondary to acute infarction in the rhomboid fossa, left lateral floor of 4th ventricle, left tectal region, on aspirin, statin. ECHO is normal, hypercoagulable work-up in progress, continue with PT/OT evaluations 2. Tobacco Abuse, encouraged to quit 3. Polysubstance abuse, urine tox negative, advised to quit 4. DVT Prophylaxis: SCDs, lovenox. 5. Disposition: Per neurology recommendations Code Visit Inpatient E&M: 47654 Subs Hosp L2
--- NOTE | 2017-12-01 15:59 | PCM.DC ---
- Discharge Diagnoses Current Active Problems: Current Active and Chronic Problems Tobacco use (Chronic) Polysubstance abuse (Chronic) Overweight (BMI 25.0-29.9) (Chronic) Acute CVA (cerebrovascular accident) (Acute) Reason(s) for Visit for Discharge Instructions: Diplopia You will use the following diet at home:: Cardiac Your food should be the consistency of: Regular Your liquids should be the consistency of: Regular/Thin Discharge Activity: Return to Normal Activity Additional Instructions: You are advised to quit using illicit drugs. You are advised to stop smoking. Take all your medications and follow-up with neurology for further management of your stroke Allergies/Adverse Reactions: Allergies No Known Allergies Allergy (Verified 11/29/17 13:21) Medications to take at Discharge Aspirin [Aspirin, Baby] 81 mg PO DAILY@0800 #30 tab.chew 12/01/17 Atorvastatin Calcium [Lipitor] 80 mg PO QHS #30 tab 12/01/17 The following prescriptions were given: Aspirin [Aspirin, Baby] 81 mg PO DAILY@0800 #30 tab.chew Atorvastatin Calcium [Lipitor] 80 mg PO QHS #30 tab Primary Care Physician: Care Physician,No Primary [Primary Care Provider] - Please follow up with your Primary Care Physician in: within 2 weeks Please Follow Up With: Luis Horowitz MD When: within 2 weeks Proposed Discharge Date: 12/01/17
--- NOTE | 2017-12-01 16:01 | PCM.DC.SUM ---
Discharge Date and Diagnosis - Problem List Patient Problems: Active and Suspected Problems Acute CVA (cerebrovascular accident) (Acute) Date of Admission: 11/29/17 Date of Discharge: 12/01/17 - Primary Discharge Diagnosis Active and Suspected Problems Acute CVA (cerebrovascular accident) (Acute) - Secondary Discharge Diagnosis Chronic Problems Tobacco use (Chronic) Polysubstance abuse (Chronic) Overweight (BMI 25.0-29.9) (Chronic) Hospital Course and Treatment Imaging Results: Clinical Impression(s) from Imaging Studies Brain CT 11/29/17 13:24 IMPRESSION: Normal unenhanced CT scan of the brain. Electronically Signed: Denys Herrera MD at 14:12 EST Tel [phone], Service support , Brain MRI 11/29/17 16:34 IMPRESSION: Punctate focus of restricted diffusion/acute infarction in the rhomboid fossa, left lateral aspect of the floor of the fourth ventricle (midbrain). No evidence of any prior infarcts or underlying chronic ischemic microvascular white matter disease. Unremarkable appearance of the orbital contents. at 2023 Reported and signed by: Shu Preaza MD Electronically Signed: Shu Peraza MD at 19:21 EST Tel , Service support , Head CTA 11/29/17 23:06 IMPRESSION: Negative CT angiogram of the head and neck. at 2359 Reported and signed by: Shu Peraza MD Electronically Signed: Shu Peraza MD at 22:57 EST Tel , Service support , Neck CTA 11/29/17 23:06 IMPRESSION: Negative CT angiogram of the head and neck. at 2358 Reported and signed by: Shu Peraza MD Electronically Signed: Shu Peraza MD at 22:56 EST Tel , Service support , Neurology - Dr Dean Operations: None Procedures: 2-D Echocardiogram Summary of Care Provided: 32 y/o M with PMHxof Tobacco use, Polysubstance abuse admitted on 11/29/17 with diplopia 1. Diplopia secondary to acute infarction in the rhomboid fossa, left lateral floor of 4th ventricle, left tectal region, on aspirin, statin. ECHO is normal, hypercoagulable work-up in progress, continue with PT/OT evaluations, will need to follow-up with neurologist in outpatient 2. Tobacco Abuse, encouraged to quit 3. Polysubstance abuse, urine tox negative, advised to quit Discharge Diet: Low fat/ Low Cholesterol, 2000 mg Sodium Diet Discharge Activity: Return to Normal Activity Home Medications: Medications to take at Discharge Aspirin [Aspirin, Baby] 81 mg PO DAILY@0800 #30 tab.chew 12/01/17 Atorvastatin Calcium [Lipitor] 80 mg PO QHS #30 tab 12/01/17 Following Prescrptions Were Given to Patient: Aspirin [Aspirin, Baby] 81 mg PO DAILY@0800 #30 tab.chew Atorvastatin Calcium [Lipitor] 80 mg PO QHS #30 tab Primary Care Physician: Care Physician,No Primary [Primary Care Provider] - Please follow up with your Primary Care Physician in: within 2 weeks Please Follow Up With: Luis Horowitz MD When: within 2 weeks Disposition: Home Minutes spent on discharge:: 25 Patient Condition:: Stable Meaningful Use Info Meaningful Use Diagnoses (Choose all that apply): Ischemic CVA - CVA Therapy Assessed for PT,OT and/or ST?: Yes - Ischemic Stroke Antithrombotic order at d/c?: Yes Dx of Atrial fib/flutter?: No Anticoagulant at discharge?: No Reason anticoagulant not ordered: Treatment not Indicated Statins at discharge?: Yes Primary Dx Acute Ischemic CVA?: Yes IV tPA ordered during stay?: No Reason IV t-PA not ordered: Treatment not Indicated Code Visit Inpatient E&M: 85440 Disch Hosp
--- NOTE | 2017-12-01 16:04 | DS.PCM_ITS ---
Discharge Date and Diagnosis - Problem List Patient Problems: Active and Suspected Problems Acute CVA (cerebrovascular accident) (Acute) Date of Admission: 11/29/17 Date of Discharge: 12/01/17 - Primary Discharge Diagnosis Active and Suspected Problems Acute CVA (cerebrovascular accident) (Acute) - Secondary Discharge Diagnosis Chronic Problems Tobacco use (Chronic) Polysubstance abuse (Chronic) Overweight (BMI 25.0-29.9) (Chronic) Hospital Course and Treatment Imaging Results: Clinical Impression(s) from Imaging Studies Brain CT 11/29/17 13:24 IMPRESSION: Normal unenhanced CT scan of the brain. Electronically Signed: Denys Herrera MD at 14:12 EST Tel [phone], Service support , Brain MRI 11/29/17 16:34 IMPRESSION: Punctate focus of restricted diffusion/acute infarction in the rhomboid fossa, left lateral aspect of the floor of the fourth ventricle (midbrain). No evidence of any prior infarcts or underlying chronic ischemic microvascular white matter disease. Unremarkable appearance of the orbital contents. at 2023 Reported and signed by: Shu Peraza MD Electronically Signed: Shu Peraza MD at 19:21 EST Tel , Service support , Head CTA 11/29/17 23:06 IMPRESSION: Negative CT angiogram of the head and neck. at 2359 Reported and signed by: Shu Peraza MD Electronically Signed: Shu Peraza MD at 22:57 EST Tel , Service support , Neck CTA 11/29/17 23:06 IMPRESSION: Negative CT angiogram of the head and neck. at 2358 Reported and signed by: Shu Peraza MD Electronically Signed: Shu Peraza MD at 22:56 EST Tel , Service support , Neurology - Dr Dean Operations: None Procedures: 2-D Echocardiogram Summary of Care Provided: 32 y/o M with PMHxof Tobacco use, Polysubstance abuse admitted on 11/29/17 with diplopia 1. Diplopia secondary to acute infarction in the rhomboid fossa, left lateral floor of 4th ventricle, left tectal region, on aspirin, statin. ECHO is normal, hypercoagulable work-up in progress, continue with PT/OT evaluations, will need to follow-up with neurologist in outpatient 2. Tobacco Abuse, encouraged to quit 3. Polysubstance abuse, urine tox negative, advised to quit Discharge Diet: Low fat/ Low Cholesterol, 2000 mg Sodium Diet Discharge Activity: Return to Normal Activity Home Medications: Medications to take at Discharge Aspirin [Aspirin, Baby] 81 mg PO DAILY@0800 #30 tab.chew 12/01/17 Atorvastatin Calcium [Lipitor] 80 mg PO QHS #30 tab 12/01/17 Following Prescrptions Were Given to Patient: Aspirin [Aspirin, Baby] 81 mg PO DAILY@0800 #30 tab.chew Atorvastatin Calcium [Lipitor] 80 mg PO QHS #30 tab Primary Care Physician: Care Physician,No Primary [Primary Care Provider] - Please follow up with your Primary Care Physician in: within 2 weeks Please Follow Up With: Luis Horowitz MD When: within 2 weeks Disposition: Home Minutes spent on discharge:: 25 Patient Condition:: Stable Meaningful Use Info Meaningful Use Diagnoses (Choose all that apply): Ischemic CVA - CVA Therapy Assessed for PT,OT and/or ST?: Yes - Ischemic Stroke Antithrombotic order at d/c?: Yes Dx of Atrial fib/flutter?: No Anticoagulant at discharge?: No Reason anticoagulant not ordered: Treatment not Indicated Statins at discharge?: Yes Primary Dx Acute Ischemic CVA?: Yes IV tPA ordered during stay?: No Reason IV t-PA not ordered: Treatment not Indicated Code Visit Inpatient E&M: [id number] Disch Hosp
[2017-12-04 14:14] LABS: Anti-Cardiolipin Ab, IgG, Qn < 9 GPL U/mL (0-14); Anti-Cardiolipin Ab, IgM, Qn 12 MPL U/mL (0-12); Beta-2-Glycoprotein I IgA <9 (0-25); Beta-2-Glycoprotein I IgG <9 (0-20); Beta-2-Glycoprotein I IgM <9 (0-32)
[2017-12-04 20:07] LABS: Protein C Antigen 131 % (60-150); Protein C, Functional 157 % (73-180)
[2017-12-05 07:44] LABS: Anti-Thrombin 3 AG, Immunol 117 % (72-124); Antithrombin 3 Function 119 % (75-135)
== END 2017-12-01 16:37 | disposition home or self-care (01) | DRG 66 ==
LOC: ED 18:17 → PCU 22:24
PROVIDERS: Psychiatry & Neurology Neurology; Admitting Provider Family Medicine; Emergency Provider Emergency Medicine; Visit Provider Internal Medicine
DX: I63.9 Cerebral infarction, unspecified (principal); E66.3 Overweight; Z68.26 Body mass index [BMI] 26.0-26.9, adult; F17.210 Nicotine dependence, cigarettes, uncomplicated; F19.10 Other psychoactive substance abuse, uncomplicated; H53.2 Diplopia; Z23 Encounter for immunization
CPT/HCPCS: 36415; 70450; 70496; 70498; 70553; 80048; 80061; 80307; 81240; 81241; 83735; 84443; 85025; 85027; 85300; 85301; 85302; 85303; 85610; 85613; 85652; 85730; 86146; 86147; 92507; 92523; 93005; 93306; 97166; 97802; 99285; 99406; A9585; J7030; Q9967; 90686; A4216; J2405

== ENCOUNTER → 2017-12-19 09:29 | Outpatient (CLI) | payer OTHER, SELFPAY ==
[2017-12-19 12:32] LABS: Homocysteine 5.6 umol/L (3.2-10.7)
[2017-12-19 12:52] LABS: Cholesterol 137 mg/dL (200); High Density Lipoprotein 38 mg/dL; Triglycerides 328 mg/dL; Very Low Density Lipoprotein 66 mg/dL (5-40)
== END ==
PROVIDERS: Family Provider Family Medicine; PCP Family Medicine; Visit Provider Family Medicine
DX: E78.1 Pure hyperglyceridemia (principal); Z86.73 Personal history of transient ischemic attack (TIA), and cerebral infarction without residual deficits
CPT/HCPCS: 36415; 80061; 82746; 83090

== ENCOUNTER → 2017-12-28 23:15 | Outpatient (CLI) | payer OTHER, SELFPAY | PROVIDERS: Family Provider Family Medicine; PCP Family Medicine; Visit Provider Nurse Practitioner Acute Care | DX: G47.33 Obstructive sleep apnea (adult) (pediatric) (principal); I48.91 Unspecified atrial fibrillation; Z86.73 Personal history of transient ischemic attack (TIA), and cerebral infarction without residual deficits | CPT/HCPCS: 95810 ==